=== PATIENT | female | born 1970 | race Caucasian/White ===

== ENCOUNTER 2016-12-21 16:01 | Emergency (ER) | payer OTHER ==
--- NOTE | 2016-12-21 17:48 | ED CLINICAL REPORT ---
Clinical Report - Physicians/Mid Levels [facility] [address] [place] [address] 12/21/2016 16:02 [id number] Time Seen: 16:37 Dec 21 2016. Arrived- By private vehicle. Historian- patient. HISTORY OF PRESENT ILLNESS Chief Complaint: ABDOMINAL PAIN. This started today and is still present. It is described as "pain" and it is described as located in the left upper quadrant and the left flank. (Patient reports diarrhea and abdominal pain over the last 3 weeks, recently was seen with her primary care provider, and had outpatient testing completed, patient reports positive testing for salmonella. Reports no current hematochezia. Reports left-sided flank pain. Denies urgency or frequency. Patient reports she saw someone also for a second opinion, and stated she had a large spleen.). REVIEW OF SYSTEMS No constipation, difficulty with urination, pain with urination, missed periods or abnormal bleeding. No headache, sore throat or chest pain. All systems otherwise negative, except as recorded above. PAST HISTORY Problems: Hypertension. Fibromyalgia. Back Pain. Sinusitis. Abdominal Pain. IGG deficiency. Abscess. Tetanus Status. Facial Cellulitis. Periorbital Cellulitis. Puncture Wound. Infected Puncture Wound. Vomiting. Immunizations. Pulmonary Nodule. Gastroesophageal Reflux Disease. Gout. Irritable Bowel Syndrome. Essential Hypertension. Herpes Genitalis. Benign growth in lung (unsure which). URI. Bronchitis. Eczema. COPD - Chronic Obstructive Pulmonary Disease. Migraine Headache. Bipolar Disorder. Headache. LNMP - Last Normal Menstrual Period. Additional Surgeries: Colonoscopy. Oophorectomy. Salpingectomy. Septoplasty. Sinus Surgery. Medications: Cymbalta Oral 40 mg, daily as needed. Allergies: Neurontin. Sulfa Antibiotics. SOCIAL HISTORY Smoker- current status unknown. No alcohol use or drug use. ADDITIONAL NOTES The nursing notes have been reviewed. PHYSICAL EXAM Vital Signs: 12/21/2016 16:21 BP: 118/50. HR: 95. RR: 16. O2 saturation: 100%. Temp: 97.4 F. Appearance: Alert. No acute distress. Eyes: Eyes normal inspection. ENT: Pharynx normal. Neck: Normal inspection. CVS: Normal heart rate and rhythm. Respiratory: No respiratory distress. Breath sounds normal. Chest nontender. No decreased air movement. Abdomen: Soft and nontender. No abdominal tenderness or rebound tenderness. Rectal: Rectal exam normal and nontender. Stool heme negative. (POC test reference range: negative). (chaperoned with RN). Skin: Normal skin color. Neuro: Oriented X 3. LABS, X-RAYS, AND EKG Laboratory Tests: UA-Culture if indicated: (TRI: 12/21/2016 16:36) ( [facility] 12/21/2016 17:00) Final results Test Result Flag Units (Reference) URINE COLOR YELLOW URINE APPEARANCE CLEAR URINE GLUCOSE NEGATIVE (NEGATIVE) URINE BILIRUBIN NEGATIVE (NEGATIVE) URINE KETONE NEGATIVE (NEGATIVE) URINE SPECIFIC GRAVITY 1.010 (1.010-1.030) URINE PH 5.5 (5.0-8.0) URINE PROTEIN NEGATIVE (NEGATIVE) URINE UROBILINOGEN 0.2 EU/dL (0.2-1.0) URINE NITRITE NEGATIVE (NEGATIVE) URINE BLOOD NEGATIVE (NEGATIVE) URINE LEUK ESTERASE NEGATIVE (NEGATIVE) URINE RBC NONE SEEN rbc/hpf (0-1) URINE WBC 0-1 wbc/hpf (0-1) URINE EPITHELIAL CELLS 1-3 EPI/hpf (0-5) URINE BACTERIA NONE SEEN (NONE SEEN) URINE COMMENT CULT NOT INDICATED URINE CULTURES ARE SET-UP BASED ON THE FOLLOWING CRITERIA:POSITIVE NITRITEPOSITIVE LEUKOCYTE ESTERASEGREATER THAN 10 WHITE BLOOD CELLSMODERATE (2+) OR GREATER BACTERIA CBC w Diff: (TRI: 12/21/2016 16:35) ( [facility] 12/21/2016 17:05) Final results Test Result Flag Units (Reference) WHITE BLOOD COUNT 8.8 K/uL (4.5-11.5) RED BLOOD COUNT 5.05 M/uL (4.00-5.20) HEMOGLOBIN 16.0 gm/dL (12.0-16.0) HEMATOCRIT 47.6 H % (36.0-46.0) MEAN CELL VOLUME 94 fL (80-100) MEAN CORPUSCULAR HGB 32 pg (26-34) MEAN CORPUSCULAR HGB CONC 34 g/dL (31-37) RED CELL DISTRIBUTION WIDTH 13.4 % (11.6-14.8) PLATELET COUNT 206 K/uL (150-400) NEUTROPHIL % 54.0 % (50-75) LYMPH % 35.7 % (25-40) MONO % 7.3 % (3-14) EOSINOPHIL % 2.3 % (0-4) BASOPHIL % 0.7 % (0-2) CMP: (TRI: 12/21/2016 16:35) ( MsgRcvd 12/21/2016 17:09) Final results Test Result Flag Units (Reference) GLUCOSE 95 mg/dL (70-110) BUN 11 mg/dL (7-18) CREATININE 0.7 mg/dL (0.6-1.3) Estimated GFR >60 mL/min Estimated GFR- >60 mL/min Note: Persistent reduction over 3 months in eGFR<60 mL/min/1.73 m2 defines CKD. Patients with eGFR values>=60 mL/min/1.73 m2 may also have CKD if evidence ofpersistent proteinuria. Additional information may be foundat www.kidney.org. SODIUM 144 mmol/L (136-145) POTASSIUM 3.8 mmol/L (3.5-5.1) CHLORIDE 104 mmol/L (98-107) CARBON DIOXIDE 26 mmol/L (21-32) CALCIUM 8.9 mg/dL (8.5-10.1) TOTAL PROTEIN 7.4 g/dL (6.4-8.2) ALBUMIN 4.2 g/dL (3.3-5.0) BILIRUBIN, TOTAL 0.6 mg/dL (0.0-1.0) ALKALINE PHOSPHATASE 85 U/L (46-116) AST (SGOT) 16 U/L (15-37) ALT (SGPT) 24 U/L (12-78) LIPASE 106 U/L (73-393) AMYLASE 60 U/L (25-115) . Note - Tests: (US abd complete: unremarkable for any acute abnormalities.). PROGRESS AND PROCEDURES Course of Care: Patient here in the ER is stable. Abdomen is soft, minimal left-sided tenderness ongoing for a few days. Patient with no emergency urinary symptoms. Patient reports diarrhea, loose stool, brownish with Hemoccult negative. Patient reports positive culture recently. Attempted to get records from PCP, however they have not arrived at this time, patient's workup is complete, she reports a Cipro prescription she may take such if she habits, however her symptoms are mild in nature, and Salmonella may be treated with expected improvement. She is afebrile , no signs of acute surgical abdomen. During the time in the ED, the following DDX were considered: acute surgical abdomen, hemodynamic or metabolic instability, dehydration, gastroenteritis-viral, food borne, or bacterial, food intolerance, irritable or inflammatory bowel, infection, sepsis. 12/21/2016 17:55 BP: 112/70. HR: 94. RR: 18. O2 saturation: 98%. Temp: 97.3 F. Patient is stable. Symptoms better. Patient/family counseled. Disposition: Discharged. Condition: good. CLINICAL IMPRESSION Diarrhea Abdominal pain of unknown cause. INSTRUCTIONS Drink plenty of fluids. (take your antibiotics take pro-biotic follow up with your DR). (Electronically signed by Florinda Oviedo P.A.-C 12/21/2016 18:26)
--- NOTE | 2016-12-21 17:48 | ED ORDER SUMMARY ---
..... Patient: ISMAEL CHAN OrderSheet [facility] VisitID: [id number] [place] [address] 46y, F Registration Date/Time: 12/21/2016 ORDER SHEET Weight: 77.1 kg (stated) Allergies: Neurontin, Sulfa Antibiotics GENERAL ORDERS: CBC w Diff Urgent (16:26 12/21/2016 EKoroleva P.A.-C) (Ack 16:30 RKaruga) (16:42 RKaruga) CMP Urgent (16:26 12/21/2016 EKoroleva P.A.-C) (Ack 16:30 RKaruga) (16:42 RKaruga) UA-Culture if indicated Urgent (16:26 12/21/2016 EKoroleva P.A.-C) (Ack 16:30 RKaruga) (16:42 RKaruga) Lipase Urgent (16:26 12/21/2016 EKoroleva P.A.-C) (Ack 16:30 RKaruga) (16:42 RKaruga) Amylase Urgent (16:26 12/21/2016 EKoroleva P.A.-C) (Ack 16:30 RKaruga) (16:42 RKaruga) US Abdomen Limited (No) Urgent (16:36 12/21/2016 EKoroleva P.A.-C) (Ack 16:48 ZACHernandez) (Cancelled: Other17:25 EKoroleva P.A.-C) US Abdomen Complete (No) Urgent (17:25 12/21/2016 EKoroleva P.A.-C) (Ack 17:26 Amandanandez) (17:40 KKnebel R.N.) MEDICATION ORDERS: IV FLUIDS: ORDER SHEET NOTES: [Electronically signed by Liyah Singh R.N. (18:08 12/21/2016)] [Electronically signed by Florinda OviedoATristian-C (18:26 12/21/2016)] [Electronically locked/signed by Liyah Singh R.N. (18:08 12/21/2016)]
--- NOTE | 2016-12-21 17:48 | ED NURSING NOTES ---
Clinical Report - Nurses [facility] [address] [place] [address] 12/21/2016 16:02 [id number] Triage time 16:Dec 21 2016. Acuity: LEVEL 3. Chief Complaint: BACK PAIN. Alert. No acute distress. SEPSIS SCREEN: Sepsis Screen: negative. Infection suspected/documented. AUDREY COMA SCORE: [place] Coma Scale: 15- eyes open spontaneously (4); best verbal response- oriented x 4 (5); best motor response- obeys commands (6). --16:18 Jacquie Ch R.N. 16:07 12/21/16. BP: 118/50. HR: 102. RR: 16. O2 saturation: 100%. Temp: 97.4 F. Pain level now: 02/03. --16:18 Jacquie Ch R.N. 16:21 12/21/16. BP: 118/50. HR: 95. RR: 16. O2 saturation: 100%. Temp: 97.4 F. --16:22 Jacquie Ch R.N. Weight: 77.1 kg stated. Height/Length: 67 inches Per Patient. BMI: 26.6. --16:16 Jacquie Ch R.N. Medications Cymbalta Oral 40 mg, daily as needed. --16:11 Jacquie Ch R.N. Medication/allergy information source: the patient. --16:18 Jacquie Ch R.N. Allergies Neurontin. --16:12 Jacquie Ch R.N. Sulfa Antibiotics. --16:12 Jacquie Ch R.N. History Arrived by private vehicle. Historian: patient. Onset. (about 4 days ago). ( pt states that three weeks ago she had stomach bug and was diagnosed with salmonella today she went to systems architecture analyst who told her that her spleen was enlarged. pt complains of left flank pain.). 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 Recently seen in a clinic; labs done. (seen by systems architecture analyst today). PAST MEDICAL HX: Tetanus status: up-to-date. Immunizations: up-to-date. The patient has had a hysterectomy. Denies current . SOCIAL HX: Current every day heavy tobacco smoker (cigarette)- 1-2 packs per day. No alcohol use or drug use. No infectious disease exposure. SELF HARM ASSESSMENT: A self harm assessment was performed. The patient answered "no" to the question "Do you have thoughts of harming or killing yourself?". FALL RISK ASSESSMENT: Fall risk assessment completed. No fall risk identified. NUTRITIONAL RISK ASSESSMENT: The nutritional risk assessment revealed no deficiencies. FUNCTIONAL ASSESSMENT: Functional assessment: no impairments noted. LEARNING NEEDS ASSESSMENT: The learning needs assessment revealed no barriers. ABUSE ASSESSMENT: Abuse assessment: The patient was asked "Do you feel safe in your home?". SKIN INTEGRITY ASSESSMENT: Skin integrity risk assessment completed. No skin integrity risk identified. --16:18 Jacquie Ch R.N. PROBLEMS: Hypertension. Fibromyalgia. Back Pain. Sinusitis. Abdominal Pain. IGG deficiency. Abscess. Tetanus Status. Facial Cellulitis. Periorbital Cellulitis. Puncture Wound. Infected Puncture Wound. Vomiting. Immunizations. Gastroesophageal Reflux Disease. Gout. Irritable Bowel Syndrome. Essential Hypertension. Herpes Genitalis. Benign growth in lung (unsure which). URI. Bronchitis. Eczema. COPD - Chronic Obstructive Pulmonary Disease. Migraine Headache. Bipolar Disorder. Headache. LNMP - Last Normal Menstrual Period. --16:13 Jacquie Ch R.N. ADDITIONAL SURGERIES: Colonoscopy. Endoscopy. Hysterectomy. Oophorectomy. Salpingectomy. Septoplasty. Sinus Surgery. --16:13 Jacquie Ch R.N. Interventions ID band on patient. To room. --16:18 Jacquie Ch R.N. PHYSICAL ASSESSMENT GENERAL / NEURO / PSYCH: Alert. Oriented X 4. Appears in pain. RESPIRATORY: Respirations not labored. CVS: Capillary refill less than 2 seconds. GI / : Abdomen soft. EXTREMITIES: Sensation intact in extremities. BACK: Soft tissue tenderness (left flank pain). --16:20 Jacquie Ch R.N. NURSING PROGRESS NOTES Patient gowned. Head of bed elevated. Call light placed in reach. Side rails up. Bed placed in lowest position. Brakes of bed on. Care transferred. --16:21 Jacquie Ch R.N. Checked patient name and birthdate: patient confirmed. Blood samples drawn from the right antecubital space with 23g butterfly by tech per protocol ; labeled in presence of the patient: rainbow set. --16:42 Karuga, Ayaka The patient is calm and resting quietly. Overall patient status is the same- she states feels the same. --17:40 Jacquie Ch R.N. 17:39 12/21/16. BP: 103/59. HR: 97. RR: 16. O2 saturation: 98%. Pain level now: 03/05. --17:40 Jacquie Ch R.N. 17:55. Overall patient status is the same- she states feels the same (pt was up and dressed, she appeared upset). GENERAL / NEURO / PSYCH: Alert. Oriented X 4. RESPIRATORY: No respiratory distress. SKIN: Skin is warm and dry. --18:07 Liyah Singh R.N. DISPOSITION / DISCHARGE Departure time: 1755. Condition at departure: stable. ( pt appeared upset when she left). No learning barriers present. Discharge instructions provided and reviewed with the patient. Patient verbalized understanding. Written instructions provided in Persian. The patient was discharged home and unaccompanied at time of discharge. She left the Emergency Department ambulatory and via private vehicle. FALL RISK ASSESSMENT: Fall risk assessment completed. No fall risk identified. --18:06 Liyah Singh R.N. 17:55 12/21/16. BP: 112/70. HR: 94. RR: 18. O2 saturation: 98% on room air. Temp: 97.3 F (oral). --18:06 Liyah Singh R.N. Locked/Released at 12/21/2016 18:08 by Liyah Singh R.N.
--- NOTE | 2016-12-21 17:48 | ED ORDER SUMMARY ---
..... Patient: ISMAEL CHAN OrderSheet [facility] VisitID: [id number] [place] [address] 46y, F Registration Date/Time: 12/21/2016 ORDER SHEET Weight: 77.1 kg (stated) Allergies: Neurontin, Sulfa Antibiotics GENERAL ORDERS: CBC w Diff Urgent (16:26 12/21/2016 EKoroleva P.A.-C) (Ack 16:30 RKaruga) (16:42 RKaruga) CMP Urgent (16:26 12/21/2016 EKoroleva P.A.-C) (Ack 16:30 RKaruga) (16:42 RKaruga) UA-Culture if indicated Urgent (16:26 12/21/2016 EKoroleva P.A.-C) (Ack 16:30 RKaruga) (16:42 RKaruga) Lipase Urgent (16:26 12/21/2016 EKoroleva P.A.-C) (Ack 16:30 RKaruga) (16:42 RKaruga) Amylase Urgent (16:26 12/21/2016 EKoroleva P.A.-C) (Ack 16:30 RKaruga) (16:42 RKaruga) US Abdomen Limited (No) Urgent (16:36 12/21/2016 EKoroleva P.A.-C) (Ack 16:48 ZACHernandez) (Cancelled: Other17:25 EKoroleva P.A.-C) US Abdomen Complete (No) Urgent (17:25 12/21/2016 EKoroleva P.A.-C) (Ack 17:26 Amandanandez) (17:40 KKnebel R.N.) MEDICATION ORDERS: IV FLUIDS: ORDER SHEET NOTES: [Electronically signed by Liyah Singh R.N. (18:08 12/21/2016)] [Electronically signed by Florinda OviedoATristian-C (18:26 12/21/2016)] [Electronically locked/signed by Liyah Singh R.N. (18:08 12/21/2016)]
--- NOTE | 2016-12-21 17:48 | ED NURSING NOTES ---
Clinical Report - Nurses [facility] [address] [place] [address] 12/21/2016 16:02 [id number] Triage time 16:Dec 21 2016. Acuity: LEVEL 3. Chief Complaint: BACK PAIN. Alert. No acute distress. SEPSIS SCREEN: Sepsis Screen: negative. Infection suspected/documented. AUDREY COMA SCORE: [place] Coma Scale: 15- eyes open spontaneously (4); best verbal response- oriented x 4 (5); best motor response- obeys commands (6). --16:18 Jacquie Ch R.N. 16:07 12/21/16. BP: 118/50. HR: 102. RR: 16. O2 saturation: 100%. Temp: 97.4 F. Pain level now: 02/03. --16:18 Jacquie Ch R.N. 16:21 12/21/16. BP: 118/50. HR: 95. RR: 16. O2 saturation: 100%. Temp: 97.4 F. --16:22 Jacquie Ch R.N. Weight: 77.1 kg stated. Height/Length: 67 inches Per Patient. BMI: 26.6. --16:16 Jacquie Ch R.N. Medications Cymbalta Oral 40 mg, daily as needed. --16:11 Jacquie Ch R.N. Medication/allergy information source: the patient. --16:18 Jacquie Ch R.N. Allergies Neurontin. --16:12 Jacquie Ch R.N. Sulfa Antibiotics. --16:12 Jacquie Ch R.N. History Arrived by private vehicle. Historian: patient. Onset. (about 4 days ago). ( pt states that three weeks ago she had stomach bug and was diagnosed with salmonella today she went to baseball glove stuffer who told her that her spleen was enlarged. pt complains of left flank pain.). 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 Recently seen in a clinic; labs done. (seen by baseball glove stuffer today). PAST MEDICAL HX: Tetanus status: up-to-date. Immunizations: up-to-date. The patient has had a hysterectomy. Denies current . SOCIAL HX: Current every day heavy tobacco smoker (cigarette)- 1-2 packs per day. No alcohol use or drug use. No infectious disease exposure. SELF HARM ASSESSMENT: A self harm assessment was performed. The patient answered "no" to the question "Do you have thoughts of harming or killing yourself?". FALL RISK ASSESSMENT: Fall risk assessment completed. No fall risk identified. NUTRITIONAL RISK ASSESSMENT: The nutritional risk assessment revealed no deficiencies. FUNCTIONAL ASSESSMENT: Functional assessment: no impairments noted. LEARNING NEEDS ASSESSMENT: The learning needs assessment revealed no barriers. ABUSE ASSESSMENT: Abuse assessment: The patient was asked "Do you feel safe in your home?". SKIN INTEGRITY ASSESSMENT: Skin integrity risk assessment completed. No skin integrity risk identified. --16:18 Jacquie Ch R.N. PROBLEMS: Hypertension. Fibromyalgia. Back Pain. Sinusitis. Abdominal Pain. IGG deficiency. Abscess. Tetanus Status. Facial Cellulitis. Periorbital Cellulitis. Puncture Wound. Infected Puncture Wound. Vomiting. Immunizations. Gastroesophageal Reflux Disease. Gout. Irritable Bowel Syndrome. Essential Hypertension. Herpes Genitalis. Benign growth in lung (unsure which). URI. Bronchitis. Eczema. COPD - Chronic Obstructive Pulmonary Disease. Migraine Headache. Bipolar Disorder. Headache. LNMP - Last Normal Menstrual Period. --16:13 Jacquie Ch R.N. ADDITIONAL SURGERIES: Colonoscopy. Endoscopy. Hysterectomy. Oophorectomy. Salpingectomy. Septoplasty. Sinus Surgery. --16:13 Jacquie Ch R.N. Interventions ID band on patient. To room. --16:18 Jacquie Ch R.N. PHYSICAL ASSESSMENT GENERAL / NEURO / PSYCH: Alert. Oriented X 4. Appears in pain. RESPIRATORY: Respirations not labored. CVS: Capillary refill less than 2 seconds. GI / : Abdomen soft. EXTREMITIES: Sensation intact in extremities. BACK: Soft tissue tenderness (left flank pain). --16:20 Jacquie Ch R.N. NURSING PROGRESS NOTES Patient gowned. Head of bed elevated. Call light placed in reach. Side rails up. Bed placed in lowest position. Brakes of bed on. Care transferred. --16:21 Jacquie Ch R.N. Checked patient name and birthdate: patient confirmed. Blood samples drawn from the right antecubital space with 23g butterfly by tech per protocol ; labeled in presence of the patient: rainbow set. --16:42 Karuga, Ayaka The patient is calm and resting quietly. Overall patient status is the same- she states feels the same. --17:40 Jacquie Ch R.N. 17:39 12/21/16. BP: 103/59. HR: 97. RR: 16. O2 saturation: 98%. Pain level now: 03/05. --17:40 Jacquie Ch R.N. 17:55. Overall patient status is the same- she states feels the same (pt was up and dressed, she appeared upset). GENERAL / NEURO / PSYCH: Alert. Oriented X 4. RESPIRATORY: No respiratory distress. SKIN: Skin is warm and dry. --18:07 Liyah Singh R.N. DISPOSITION / DISCHARGE Departure time: 1755. Condition at departure: stable. ( pt appeared upset when she left). No learning barriers present. Discharge instructions provided and reviewed with the patient. Patient verbalized understanding. Written instructions provided in Frisian. The patient was discharged home and unaccompanied at time of discharge. She left the Emergency Department ambulatory and via private vehicle. FALL RISK ASSESSMENT: Fall risk assessment completed. No fall risk identified. --18:06 Liyah Singh R.N. 17:55 12/21/16. BP: 112/70. HR: 94. RR: 18. O2 saturation: 98% on room air. Temp: 97.3 F (oral). --18:06 Liyah Singh R.N. Locked/Released at 12/21/2016 18:08 by Liyah Singh R.N.
--- NOTE | 2016-12-21 18:26 | ED MAR SUMMARY ---
..... Medication Administration Record [facility] [address] [place], [place] [id number] Patient: ISMAEL CHAN Visit ID: [id number] 46y, F Weight: 77.1 kg Height/Length: 67 in BMI: 26.6 ALLERGIES: Sulfa Antibiotics, Neurontin
--- NOTE | 2016-12-21 18:26 | ED MAR SUMMARY ---
..... Medication Administration Record [facility] [address] [place], [place] [id number] Patient: ISMAEL CHAN Visit ID: [id number] 46y, F Weight: 77.1 kg Height/Length: 67 in BMI: 26.6 ALLERGIES: Sulfa Antibiotics, Neurontin
--- NOTE | 2016-12-21 18:26 | ED DISCHARGE INSTRUCTIONS ---
Patient: ISMAEL CHAN General Instructions [facility] VisitID: [id number] [place] [address] 46y, F Registration Date/Time: 12/21/2016 Diarrhea Abdominal pain of unknown cause. INSTRUCTIONS Drink plenty of fluids. (take your antibiotics take pro-biotic follow up with your DR). ADDITIONAL INFORMATION Diarrhea, Bacterial [6Yr-Adult] You have gastro-enteritis which is another name for an infection in the intestinal tract. Although most of the time this is due to a virus ("stomach flu"), you may have a more serious bacterial infection . This may cause fever, vomiting, stomach cramping and diarrhea. There may also be blood or mucus in the stool. Antibiotics are often used to treat this type of infection. Sometimes it is necessary to wait until a stool culture is complete before an antibiotic can be chosen. This may take about two days. In the meantime, follow the advice below. Home Care 1. If antibiotics were prescribed, take them until they are finished. 2. You may use acetaminophen (Tylenol) or ibuprofen (Motrin, Advil) to control pain and fever, unless another medicine was prescribed for this. [NOTE: If you have chronic liver or kidney disease or ever had a stomach ulcer or GI bleeding, talk with your doctor before using these medicines.] (Aspirin should never be used in anyone under 18 years of age who is ill with a fever. It may cause severe liver damage.) 3. Do not give apax-tuu-hhdmsdt anti-diarrheal medicines, unless advised by your doctor. 4. Once vomiting stops: During The First 12-24 Hours follow the diet below: BEVERAGES: Sport drinks like Gatorade, soft drinks without caffeine; gingerale, mineral water (plain or flavored), decaffeinated tea and coffee. SOUPS: Clear broth, consomm and bouillon DESSERTS: Plain gelatin (Jell-O), popsicles and fruit juice bars. During The Next 24 Hours you may add the following to the above: Hot cereal, plain toast, bread, rolls, crackers Plain noodles, rice, mashed potatoes, chicken noodle or rice soup Unsweetened canned fruit (avoid pineapple), bananas Limit fat intake to less than 15 grams per day by avoiding margarine, butter, oils, mayonnaise, sauces, gravies, fried foods, peanut butter, meat, poultry and fish. Limit fiber; avoid raw or cooked vegetables, fresh fruits (except bananas) and bran cereals. Limit caffeine and chocolate. No spices or seasonings except salt. During The Next 24 Hours Gradually resume a normal diet, as you feel better and your symptoms lessen. 5. PREVENTION General Tips Hand washing with soap and water is the best way to prevent the spread of infection. Wash hands after handling your sick child. Wash your hands after using the toilet and before meals. Clean the toilet after each use. Keep your child out of school until cleared by your doctor. Food Preparation People with diarrhea should not prepare food for others. When preparing foods, wash your hands before and after. Wash your hands after using cutting boards, counter-tops and knives that have been in contact with raw foods. When preparing foods, keep uncooked meats away from cooked and vmjns-di-che foods. Follow Up with your doctor as advised. Call if not improving within 24 hours or if diarrhea lasts more than one week on antibiotics. If a stool (diarrhea) sample was taken, you may call in 2 days (or as directed) for the results. Get Prompt Medical Attention if any of the following occur: Increasing abdominal pain or constant lower right abdominal pain Continued vomiting (unable to keep liquids down) Frequent diarrhea (more than 5 times a day) Blood in vomit or stool (black or red color) Reduced oral intake Dark urine, reduced urine output Weakness, dizziness, fainting Drowsiness, confusion, stiff neck or seizure Fever over 101.0 F (38.3 C) for more than 3 days New rash Abdominal Pain, Unknown Cause (Female) The exact cause of your abdominal (stomach) pain is not certain. This does not mean that this is something to worry about, or the right tests were not done. Everyone likes to know the exact cause of the problem, but sometimes with abdominal pain, there is no clear-cut cause, and this could be a good thing. The good news is that your symptoms can be treated, and you will feel better. Your condition does not seem serious now; however, sometimes the signs of a serious problem may take more time to appear. For this reason,it is important for you to watch for any new symptoms, problems,or worsening of your condition. Over the next few days, the abdominal pain may come and go, or be continuous. Other common symptoms can include nausea and vomiting. Sometimes it can be difficult to tell if you feel nauseous, you may just feel bad and not associate that feeling with nausea. Constipation, diarrhea, and a fever may go along with the pain. The pain may continue even if treated correctly over the following days. Depending on how things go, sometimes the cause can become clear and may require further or different treatment. Additional evaluations, medications, or tests may be needed. Home care Your health care provider may prescribe medications for pain, symptoms, or an infection. Follow the health care provider's instructions for taking these medications. General care Rest until your next exam. No strenuous activities. Try to find positions that ease discomfort. A small pillow placed on the abdomen may help relieve pain. Something warm on your abdomen (such as a heating pad) may help, but be careful not to burn yourself. Diet Do not force yourself to eat, especially if having cramps, vomiting, or diarrhea. Water is important so you do not get dehydrated. Soup may also be good. Sports drinks may also help, especially if they are not too acidic. Make sure you don't drink sugary drinks as this can make things worse. Take liquids in small amounts. Do not guzzle them. Caffeine sometimes makes the pain and cramping worse. Avoid dairy products if you have vomiting or diarrhea. Don't eat large amounts at a time. Wait a few minutes between bites. Eat a diet low in fiber (called a low-residue diet). Foods allowed include refined breads, white rice, fruit and vegetable juices without pulp, tender meats. These foods will pass more easily through the intestine. Avoid whole-grain foods, whole fruits and vegetables, meats, seeds and nuts, fried or fatty foods, dairy, alcohol and spicy foods until your symptoms go away. Follow-up care Follow up with your health care provider as instructed, or if your pain does not begin to improve in the next 24 hours. When to seek medical care Seek prompt medical care if any of the following occur: Pain gets worse or moves to the right lower abdomen New or worsening vomiting or diarrhea Swelling of the abdomen Unable to pass stool for more than three days Fever of 100.4F (38C) or higher, or as directed by your healthcare provider. Blood in vomit or bowel movements (dark red or black color) Jaundice (yellow color of eyes and skin) Weakness, dizziness Chest, arm, back, neck or jaw pain Unexpected vaginal bleeding or missed period Call 911 Call emergency services if any of the following occur: Trouble breathing Confusion Fainting or loss of consciousness Rapid heart rate Seizure You have been given the following additional information: Diarrhea, Bacterial (6Y-Adult) Abdominal Pain, Unknown Cause, (Female) (Electronically signed by Florinda Oviedo P.A.-C 12/21/2016 18:26)
--- NOTE | 2016-12-21 18:26 | ED MED RECONCILIATION SUMMARY ---
Patient: ISMAEL CHAN Medication Reconciliation Report [facility] VisitID: [id number] [address] [place] [address] 46y, F Registration Date/Time: 12/21/2016 Weight: 77.1 kg Height/Length: 67 in. BMI: 26.6 ALLERGIES: Neurontin, Sulfa Antibiotics The patient's Home Medications are listed below: THE FOLLOWING MEDICATIONS NEED TO BE RECONCILED: Cymbalta Oral 40 mg, daily The source(s) of the original Home Medication information: patient The following Medications were given to the patient in the Emergency Department: None. The following Medications were prescribed to the patient: None.
--- NOTE | 2016-12-21 18:26 | ED MED RECONCILIATION SUMMARY ---
Patient: ISMAEL CHAN Medication Reconciliation Report [facility] VisitID: [id number] [address] [place] [address] 46y, F Registration Date/Time: 12/21/2016 Weight: 77.1 kg Height/Length: 67 in. BMI: 26.6 ALLERGIES: Neurontin, Sulfa Antibiotics The patient's Home Medications are listed below: THE FOLLOWING MEDICATIONS NEED TO BE RECONCILED: Cymbalta Oral 40 mg, daily The source(s) of the original Home Medication information: patient The following Medications were given to the patient in the Emergency Department: None. The following Medications were prescribed to the patient: None.
--- NOTE | 2016-12-22 09:25 | DIAGNOSTIC IMAGING REPORT ---
PROCEDURE: US ABDOMEN ULTRASOUND-LIMITED INDICATION: ABDOMINAL PAIN TECHNIQUE: Lopez scale and color Doppler sonographic images of the abdomen were obtained. COMPARISON: Abdominal ultrasound 07/19/2009. FINDINGS: Normal liver, spleen, pancreas and gallbladder. Normal CBD, 2.5 mm. Negative Oneal's sign. Aorta and IVC are patent. Normal hepatopetal flow. Normal kidneys. Right kidney measures 10 cm and left kidney 11.9 cm. IMPRESSION: 1. Normal abdominal ultrasound
== END 2016-12-21 17:55 | disposition home or self-care (01) ==
LOC: ED SRH 16:01
DX: R10.9 Unspecified abdominal pain (principal); R19.7 Diarrhea, unspecified; I10 Essential (primary) hypertension; J44.9 Chronic obstructive pulmonary disease, unspecified; Z88.8 Allergy status to other drugs, medicaments and biological substances; Z88.2 Allergy status to sulfonamides
CPT/HCPCS: 90004; 90100; 92235; 92530; 95059

== ENCOUNTER 2017-02-28 11:34 | Outpatient (CLI) | payer OTHER ==
--- NOTE | 2017-02-28 14:54 | DIAGNOSTIC IMAGING REPORT ---
PROCEDURE: XR MAJOR JT INJ OR ASPIRATION INDICATION: LEFT HIP PAIN TECHNIQUE: The patient was advised of the usual risks and complications including infection, bleeding, and allergy. Supine position. Following sterile preparation and 1% lidocaine anesthetic, fluoroscopic guidance (0.7 minutes, 264.96 mGy) was utilized to place a 22-gauge spinal needle into the anterolateral aspect of the left joint. Intraarticular position was confirmed with 2 mL of Isovue 200 contrast material. Subsequently, a 6 mL solution (2 mL 40 mg/mL Kenalog, 2 mL 1% lidocaine, 2 mL 0.5% Marcaine) was infused and the needle was withdrawn. COMPARISON: Comparison is made to fluoroscopically guided therapeutic left hip injection on 05/18/2009. FINDINGS: Two AP views. Confirmation of intraarticular injection. Osseous structures and joint spaces appear normal. The patient tolerated the procedure reasonably well and was discharged home in satisfactory condition with instructions to resume routine activity the following day, and to call for any untoward symptoms (increasing pain/swelling). IMPRESSION: 1. Successful fluoroscopically guided therapeutic injection of the left hip joint.
== END 2017-02-28 23:00 ==
LOC: XR SRH 11:34
PROC: 3E0U33Z Introduction of Anti-inflammatory into Joints, Percutaneous Approach (ICD-10-PCS; principal; 2017-02-28)
PROC: BQ111ZZ Fluoroscopy of Left Hip using Low Osmolar Contrast (ICD-10-PCS; 2017-02-28)
DX: M25.552 Pain in left hip (principal)
CPT/HCPCS: 82445